=== PATIENT | female | born 1985 | race Caucasian/White ===

== ENCOUNTER 2016-12-25 12:04 | Emergency (ER) | payer MEDICAID, OTHER ==
[~2016-12-25] VITALS: Ht 160 cm; Wt 89.0 kg
[2016-12-25 12:09] VITALS: Ht 160 cm; Wt 89.0 kg
[2016-12-25] MEDS ORDERED: TYL500 PO (14:13)
[2016-12-25] MEDS ORDERED: SODI104S2 NS (14:14)
--- NOTE | 2016-12-25 14:45 | ERD ---
ER Documentation Chief Complaint Date/Time DATE: 12/25/16 TIME: 14:40 Chief Complaint 10 weeks send by pmd due htn, asymptomatic HPI This is a 31-year-old female presents to the ER for tachycardia. Upon questioning patient states she has high "tension." Patient went to her OB today and she was guest attendant referral, patient came to the ER since she was worried. Patient denies any chest pain or shortness of breath. She denies any palpitations at this time. Patient does not have any fevers or chills. She does have a runny nose, cough and sore throat which started 3 days ago. Patient denies any vaginal bleeding. She denies any pelvic pain. She denies any urinary frequency or dysuria. She denies any vaginal discharge. ROS 12 point review of systems was done, all negative except per HPI. Medications Home Meds Active Scripts Sodium Chloride ([place]) 104 Ml [place], 104 ML NS q2 for 3 Days, SPRAY Prov:ANTOINE,SHELIA C 12/25/16 Acetaminophen* (Tylenol*) 500 Mg Tab, 500 MG PO Q4H Y for MILD PAIN LEVEL 1-3 for 3 Days, TAB Prov:ANTOINE,SHELIA C 12/25/16 Allergies Allergies: Coded Allergies: No Known Allergy (Unverified , 12/25/16) PMhx/Soc Medical and Surgical Hx: pt denies Medical Hx, pt denies Surgical Hx History of Surgery: No Anesthesia Reaction: No Hx Neurological Disorder: No Hx Respiratory Disorders: No Hx Cardiac Disorders: No Hx Psychiatric Problems: No Hx Miscellaneous Medical Probl: No Hx Alcohol Use: No Hx Substance Use: No Hx Tobacco Use: No Smoking Status: Never smoker Physical Exam Vitals Vital Signs Date Time Temp Pulse Resp B/P Pulse Ox O2 Delivery O2 Flow Rate FiO2 12/25/16 12:09 98.1 99 20 132/80 99 Physical Exam GENERAL: The patient is well developed and appropriate for usual state of health , in no apparent distress. HEENT: Atraumatic. CHEST: Clear to auscultation bilaterally. There are no rales, wheezes or rhonchi. HEART: Regular rate and rhythm. No murmurs, clicks, rubs or gallops. ABDOMEN: Soft, nontender and nondistended. Good bowel sounds. No rebound or guarding. No gross peritonitis. No gross organomegaly or masses. No Banda sign or McBurney point tenderness. BACK: No midline or flank tenderness. NEURO: Alert and oriented. Procedures/MDM Blood Pressure Log from Clinic: 11/13/16- 138/84 11/27/16- 112/68 12/03/16-138/80 12/11/16- 119/71 12/25/16-129/93 This is a 31-year-old female presents to the ER for hypertension. I called patient's primary care doctor to clarify history as patient's blood pressure was normal in the ER and upon review of paperwork from PCP there was no evidence of previous high blood pressure. Patient is not tachycardic and is asymptomatic in the ER. I spoke to Elle, who informed me that patient was supposed to wait for a call from the clinic for guest attendant appointment. I discussed this with the patient. Patient will be treated symptomatically for her upper respiratory infection, at this time I do not believe patient has pneumonia or any other intrathoracic abnormality is her physical examination is benign. I also doubt help syndrome as patient is only in her first trimester with completely normal vital signs. I do not believe patient is having any abnormalities with the she does not have any vaginal bleeding pelvic pain or urinary frequency or dysuria. Patient my medical decision making with the patient she understands and agrees with plan. Departure Diagnosis: Primary Impression: Normal physical exam Condition: Stable Patient Instructions: Normal Exam, (Child) (Adult) Referrals: SUNNY MCGILL MD Additional Instructions: Call your primary care doctor TOMORROW for an appointment during the next 1-2 days.See the doctor sooner or return here if your condition worsens before your appointment time. SHELIA SCHULTZ December 25, 2016 14:45
== END 2016-12-25 14:54 | disposition home or self-care (01) ==
LOC: FTE 12:04
DX: Z34.00 Encounter for supervision of normal first pregnancy, unspecified trimester (principal)
CPT/HCPCS: 99283

== ENCOUNTER 2017-04-17 17:42 | Inpatient (IN) | payer OTHER ==
[~2017-04-17] VITALS: Ht 152.4 cm; Wt 113.6 kg
[~2017-04-17 17:42] MED LIST: SODI104S2 NS; TYL500 PO
[2017-04-17] MEDS ORDERED: PREN-93 PO (18:52)
[2017-04-17 18:53] VITALS: Ht 152.4 cm; Wt 113.6 kg
--- NOTE | 2017-04-17 19:03 | RADRPT ---
PROCEDURE: US biophysical profile. CLINICAL INDICATION: Decreased motion. TECHNIQUE: Multiple sonographic images of the uterus were obtained. The images were revi ewed on a PACS workstation. COMPARISON: No prior studies are available for comparison. FINDINGS: There is a single live intrauterine gestation. heart rate is 154 beats per minute. The position is cephalic. The placenta is anterior grade 1 with no abruption or previa. The AILYN is 12.4 cm. (Normal = 5-20 cm.) Breathing Movement: 2 Gross Body Movement: 2 Tone: 2 Qualitative Amniotic Fluid Volume: 2 TOTAL: 8 IMPRESSION: 1. The biophysical score is 8/8. RPTAT: QQ .Tristan Gamino MD, MD Date Time Electronically viewed and signed by .Tristan Gamino MD, on 04/17/2017 19:03 .R/
--- NOTE | 2017-04-17 21:04 | PN ---
Triage Information Date/Time 04/17/17 Reason for visit: DFM (and vaginal spotting without sexual intercourse) Weeks of Gestation 27weeks /Para with hx of PTB at 31w receiving 17hydrxy progesterone injection ? progesterone suppository? paient dosent know why she was sent to triage Objective bP 122/61 [id number] 98.3 Heart Rate: 130's Contractions: None Results/Medications Imaging Results BPP 8/8 CVL placenta ant, no abruptio or previa Disposition: Discharge Assessment/Plan IUP 27w with Hx of PTB at 31 wweeks DFM vaginal spotting PLAN 2weeks at ap[facility] or RTH PRN WITH ROUTINE LABOR INSTRUCTIONS MARICEL COLORADO MD Apr 17, 2017 21:03
--- NOTE | 2017-04-17 21:55 | RADRPT ---
PROCEDURE: CERVICAL LENGTH ULTRASOUND CLINICAL INDICATION: labor at 27 weeks gestational age. TECHNIQUE: Trans-vaginal imaging of the cervical canal was performed utilizing duran-scale imaging. Sagittal and transverse images were obtained. Trans-abdominal images were also obtained. The jese ges were reviewed on a PACS workstation. COMPARISON: None. FINDINGS: There is a single live intrauterine . heart rate is 157 beats per minute. Position is cephalic and placenta is anterior grade 1. There is no placenta previa. The cervix is closed with a length of 1.8 cm. IMPRESSION: 1. Cervical length is 1.8 cm. RPTAT: QQ .Tristan Gamino MD, MD Date Time Electronically viewed and signed by .Tristan Gamino MD, on 04/17/2017 21:55 .R/
[2017-04-17] MEDS ORDERED: PROGESTERONE 100 MG CAP PO SCH (22:24)
--- NOTE | 2017-04-17 23:00 | TRIAGE ---
OB Triage Datetime Report Generated by CPN: 04/17/2017 23:00 Datetime: 04/17/2017 19:00 Labor Evaluation Frequency: 0 Monitor Mode: External Duration (sec)2399: 0 Resting Tone [place]: Relaxed Heart Rate FHR Baseline Rate: 150 Monitor Mode: External US FHR Baseline Changes: No Baseline Change Variability: Moderate 6-25 bpm Accelerations: 15X15 Decelerations: None Category: Category I Datetime: 04/17/2017 18:30 Labor Evaluation Frequency: 0 Monitor Mode: External Duration (sec)2399: 0 Resting Tone [place]: Relaxed Heart Rate FHR Baseline Rate: 150 Monitor Mode: External US FHR Baseline Changes: No Baseline Change Variability: Moderate 6-25 bpm Accelerations: 15X15 Decelerations: None Category: Category I Datetime: 04/17/2017 18:00 Stage of : OB Triage Maternal Assessment Level of Consciousness: Fully Conscious DTR's/Clonus: DTRs 2+; No Clonus Headache: Denies Blurred Vision: No Respiratory Effort: Unlabored Breath Sounds, Left: Clear and Equal Breath Sounds, Right: Clear and Equal Nausea/Vomiting: Denies RUQ Epigastric Pain: Denies Facial Edema: None Labor Evaluation Frequency: 0 Monitor Mode: External Duration (sec)2399: 0 Resting Tone [place]: Relaxed Heart Rate FHR Baseline Rate: 150 Monitor Mode: External US FHR Baseline Changes: No Baseline Change Variability: Moderate 6-25 bpm Accelerations: 15X15 Decelerations: None Category: Category I Pain Assessment Pain Scale: 0 Pain Presence: None/Denies Pain Type: N/A Pain Goal: 0 Vaginal Exam Membrane Status: Intact Datetime: 04/17/2017 17:30 Arrived By: Ambulatory Arrived From: Office Chief Complaint: DFM Movement: Decreased Contractions: Denies/Absent Rupture of Membranes: Denies Vaginal Bleeding: Small Vaginal Discharge: Denies Recent Sexual Intercouse: Denies Abdominal Trauma: Not Applicable Patient Complaints: Other Additional Patient Complaints: HX OF PTD @ 31 WKS
[2017-04-18] MEDS ORDERED: MAGNESIUM SULFATE 4 GM/100 ML 100 ML IVPB ONE (00:30)
[2017-04-18] MEDS ORDERED: BETAMET NA PHOS/AC(6 MG/ML) 5ML INJ IM ONE (00:38)
[2017-04-18] MEDS: LACTATED RINGER'S 1,000 ML IV SCH ×2 (00:56→12:03)
[2017-04-18] MEDS ORDERED: PROGESTERONE 100 MG CAP ONE (01:01)
[2017-04-18] MEDS: MAGNESIUM SULFATE 20 GM/500 ML 500 ML IV SCH ×3 (01:29→18:12)
[2017-04-18] MEDS: ACETAMINOPHEN 325 MG TAB PO PRN ×3 (02:27→21:02)
--- NOTE | 2017-04-18 03:46 | HP ---
Date/Time of Note Date/Time of Note DATE: 04/18/17 TIME: 03:27 OB - History Hx of Present Free Text/Dictation 31 y.o at 27weeks was sent for DFM and vaginal spotting X3 while in [place] after wipe denies sexual activities Hx of PTB aat 31weeks in [facility] receiving progesterone supp 200mg hs after BPP done she was suppose to be discharged but since she had hx of PTB CVL was added which was 1.8 patient was admitted to antepartum for futher management and periconsult in am . Chief Complaint: DFM vaginal spotting Estimated Due Date: Jul 17, 2017 : 3 Para: 2 Spontaneous : 0 Therapeutic : 0 Care: Other Obstetrical Complications: None, Other (Hx of PTB, progesterone suppository) Medical Complications: None Past Family/Social History * Past Medical, Surgical, Family and Obstetric Histories reviewed from chart. Blood Type: Unknown Rubella: unknown RPR/VDRL: Unknown GBS Status: Unknown HBsAG: Unknown OB Admission Exam Physical Exam HEENT: WNL Heart: Rhythm Normal Lungs: Clear, Equal Abdomen: WNL Extremities: Normal Reflexes: Normal Cervical Dilatation: other Effacement: Other Membranes: Intact Amniotic Fluid: Unevaluable Heart Rate: 130's Accelerations: Accelerations Present Decelerations: No Decelerations Varibility: Moderate Contractions on Admission: None OB Assessment/Plan Reason for admission: other Other Assessment: IUP 27w with DFM and vaginaal spotting short cervix Hx of PTB at 31 weeks Other plan: admit and bedrest perinatalogy consult Her OB contacted got futher orders MARICEL COLORADO MD Apr 18, 2017 03:41
[2017-04-18] MEDS: FERROUS SULFATE (EC) 325 MG TAB PO SCH (09:21)
[2017-04-18] MEDS: SENNA TAB PO SCH (09:21)
[2017-04-18] MEDS: PRENATAL VITAMIN PO SCH (09:21)
[2017-04-18 12:40] LABS: BASOPHILS % 0.2 % (0.0-2.0); EOSINOPHILS % 0.1 % (0.0-7.0); HEMATOCRIT 37.2 % (37.0-47.0); HEMOGLOBIN 12.3 g/dl (12.0-16.0); LYMPHOCYTES # 1.2 10^3/ul (0.8-2.9); LYMPHOCYTES % 8.8 % (15.0-51.0); MEAN CORPUSCULAR HEMOGLOBIN 27.3 pg (29.0-33.0); MEAN CORPUSCULAR HGB CONC 33.1 g/dl (32.0-37.0); MEAN CORPUSCULAR VOLUME 82.7 fl (82.0-101.0); MEAN PLATELET VOLUME 9.6 fl (7.4-10.4); MONOCYTE # 0.3 10^3/ul (0.3-0.9); MONOCYTES % 2.1 % (0.0-11.0); NEUTROPHILS % 87.8 % (39.0-77.0); PLATELET COUNT 269 10^3/UL (140-415); RED CELL DISTRIBUTION WIDTH 14.2 % (11.5-14.5); WHITE BLOOD COUNT 13.1 10^3/ul (4.8-10.8)
[2017-04-18 13:03] LABS: ALBUMIN 3.8 g/dl (3.3-4.9); ALBUMIN/GLOBULIN RATIO 1.02; CALCIUM 7.9 mg/dl (8.4-10.2); CREATININE 0.44 mg/dl (0.44-1.00); POTASSIUM 3.9 mmol/L (3.5-5.1); TOTAL PROTEIN 7.5 g/dl (6.1-8.1)
--- NOTE | 2017-04-18 13:03 | RADRPT ---
PROCEDURE: XR Chest. CLINICAL INDICATION: Positive PPD. TECHNIQUE: Single AP portable chest. COMPARISON: None. Chest x-ray FINDINGS: The cardiomediastinal silhouette is within normal limits of size. Mild hypoventilatory changes resul ting in cardiovascular structures. Subtle asymmetric increase pulmonary vascular markings in the ri ght lower lobe. This likely represents vascular overlap. A lateral view or repeat study with impro jan inspiratory effort is recommended. The lungs are clear without pleural effusion or focal cons olidation. No pneumothorax. The osseous structures and soft tissues are unremarkable. IMPRESSION: 1. Increased pulmonary vascular markings in the medial aspect of the right lower lobe. This likely represents vascular overlap secondary to hypoventilatory changes and vascular crowding, however, giv en the history of positive PPD , a repeat study with improved inspiratory effort as well as lateral view is recommended . RPTAT:AAJJ Physician Raeann Date Time Electronically viewed and signed by Physician Raeann on 04/18/2017 13:03 SHEYLA/
[2017-04-18 13:13] LABS: INR 1.04; PROTIME 13.6 Sec (12.2-14.2); PT RATIO 1.1
[2017-04-18 13:14] LABS: PARTIAL THROMBOPLASTIN TIME 28.9 Sec (25.0-35.0)
[2017-04-18 14:01] LABS: ADD UMIC YES; UR ASCORBIC ACID 20 mg/dL (NEGATIVE); UR BACTERIA FEW /HPF (NONE SEEN); UR BILIRUBIN (Dip) NEGATIVE (NEGATIVE); UR BLOOD (Dip) NEGATIVE (NEGATIVE); UR CLARITY CLEAR (CLEAR); UR COLOR YELLOW (YELLOW); UR GLUCOSE (Dip) 1+ mg/dL (NEGATIVE); UR KETONES (Dip) TRACE mg/dL (NEGATIVE); UR LEUKOCYTE ESTERASE (Dip) TRACE Leu/ul (NEGATIVE); UR MUCUS FEW /HPF (NONE SEEN); UR NITRITE (Dip) NEGATIVE (NEGATIVE); UR RBC 2 /HPF (0-5); UR SPECIFIC GRAVITY (Dip) 1.016 (1.003-1.030); UR TOTAL PROTEIN (Dip) NEGATIVE (NEGATIVE); UR UROBILINOGEN (Dip) NEGATIVE (NEGATIVE)
[2017-04-18] MEDS: AL HYDROX/MG HYDROX/SIMETH 30 ML CUP PO PRN (14:14)
--- NOTE | 2017-04-18 20:58 | PN ---
Date/Time of Note Date/Time of Note DATE: 04/18/17 TIME: 20:56 OB Subjective Subjective Subjective Patient has no more complaint of vaginal bleeding or uterine Feels much better comparing to the day of admission OB Objective Objective Objective General physical exam is normal Vital signs are stable On electronic monitoring no uterine contractions seen She has received 1 dose of steroid She was placed on intravaginal progesterone suppository day prior to admission OB Assessment/Plan Reason for admission: labor Other Assessment: Short cervix 2728 weeks gestation Other plan: Continue magnesium sulfate for 24-48 hour Change to p.o. tocolytics afterwards Continue progesterone suppository Second dose of steroids is in order SUNNY MCGILL MD Apr 18, 2017 20:58
[2017-04-18] MEDS ORDERED: PROGESTERONE 100 MG CAP VAG SCH (21:00)
[2017-04-18] MEDS: PROGESTERONE 100 MG CAP VAG SCH (21:01)
[2017-04-19] MEDS: LACTATED RINGER'S 1,000 ML IV SCH ×2 (00:44→13:00)
[2017-04-19] MEDS ORDERED: BETAMET NA PHOS/AC(6 MG/ML) 5ML INJ IM ONE (00:45)
--- NOTE | 2017-04-19 00:58 | CONS ---
DATE OF ADMISSION: 04/17/2017 DATE OF CONSULTATION: 04/18/2017 ADDENDUM: To the already dictated consult. In addition to my previous recommendations, a chest x-ray was ordered as the patient was PPD positive in her record, and chest x-ray has not been obtained, so a chest x-ray was ordered and please follow up on the results. Dictated By: Lacie Toscano MD /aydee/monty /Document#: [id number]
--- NOTE | 2017-04-19 01:10 | CONS ---
DATE OF ADMISSION: 04/17/2017 DATE OF CONSULTATION: 04/18/2017 HISTORY OF PRESENT ILLNESS: Patient is a 31-year-old, G3, P 2, with prior delivery at 32 weeks in [facility]. She is currently 27 weeks and 1 day. She presented after noticing some blood after she used the bathroom. She denies contractions. PAST MEDICAL HISTORY: Not significant. REVIEW OF SYSTEMS: Negative except for as mentioned above. PHYSICAL EXAMINATION: VITAL SIGNS: Stable. Physical Examination deferred. heart tones reassuring for gestational age. Tocometer shows irritability. Urinalysis is not resulted yet. Her cervical length shows cervix to be 1.8 cm. IMPRESSION: 1. Intrauterine at 27 weeks and 1 day with labor. 2. Currently on magnesium sulfate, status post betamethasone x1. 3. History of a delivery at 32 weeks. 4. Urinalysis is not resulted yet. 5. Currently, no evidence of bleeding and she is stable. RECOMMENDATIONS: 1. Continue with the magnesium sulfate 24 hours after the 2nd dose of betamethasone; after that, if needed patient can be placed on Procardia 25 mg every 6 hours given her blood pressures are elevated enough to tolerate Procardia. 2. I told the patient I would like for her to stay at least of 1 week; however, she is seems to be very reluctant to do so. Therefore, I asked her until at least Friday and we will revaluate then. I did explain to her that with her history and the short cervix, there was a large risk of delivery, and if it happens at home, the outcome would be less proper than if she delivers at the hospital. 3. Urinalysis was again ordered, with urine culture. Please follow up on the results. 4. If the cervical length of Friday is above 2 cm, the patient can be discharged with modified bedrest and pelvic rest. If the cervix is below 2 cm I do recommend patient to stay. However, if she desires to leave, she can sign out against medical advice. Again, after the betamethasone is discontinued, Procardia can be considered if her blood pressures are appropriate enough not for the patient to experience hypotensive disorders. Dictated By: Lacie Toscano MD /aydee/monty /Document#: [id number]
[2017-04-19] MEDS: MAGNESIUM SULFATE 20 GM/500 ML 500 ML IV SCH (04:35)
[2017-04-19] MEDS: SENNA TAB PO SCH (10:25)
[2017-04-19] MEDS: FERROUS SULFATE (EC) 325 MG TAB PO SCH (10:25)
[2017-04-19] MEDS: PRENATAL VITAMIN PO SCH (10:25)
[2017-04-19] MEDS: NIFEdipine 10 MG CAP PO SCH ×2 (11:58→17:50)
[2017-04-19] MEDS: AL HYDROX/MG HYDROX/SIMETH 30 ML CUP PO PRN (13:03)
--- NOTE | 2017-04-19 15:15 | PN ---
Date/Time of Note Date/Time of Note DATE: 04/19/17 TIME: 15:12 OB Subjective Subjective Subjective No complaint of uterine contraction or vaginal bleed OB Objective Objective Objective Vital signs are stable General physical exam is normal On electronic monitoring no uterine contractions seen Heart tones appeared reactive Neonatology consultation recommends to keep patient in-house at least until 2016 OB Assessment/Plan Reason for admission: labor Other Assessment: Short cervix Other plan: We will continue to observe patient on Procardia 20 mg p.o. every 6 Continue to observe patient in hospital at least until April 21 Repeat cervical ultrasound on April 21, 2017 We will continue supportive care in between SUNNY MCGILL MD Apr 19, 2017 15:15
[2017-04-19] MEDS ORDERED: FERROUS SULFATE (EC) 325 MG TAB PO SCH (15:30)
[2017-04-19] MEDS ORDERED: PRENATAL VITAMIN PO SCH (15:30)
[2017-04-19] MEDS ORDERED: MAGNESIUM HYDROXIDE 30ML CUP PO PRN (15:30)
[2017-04-19] MEDS: ACETAMINOPHEN 325 MG TAB PO PRN (20:48)
[2017-04-19] MEDS ORDERED: PROGESTERONE 100 MG CAP VAG SCH (21:00)
[2017-04-19] MEDS: PROGESTERONE 100 MG CAP VAG SCH (21:20)
[2017-04-20] MEDS: NIFEdipine 10 MG CAP PO SCH ×4 (01:06→18:02)
[2017-04-20] MEDS: INDOMETHACIN 50 MG PO SCH ×3 (06:30→18:01)
[2017-04-20] MEDS: FERROUS SULFATE (EC) 325 MG TAB PO SCH (09:02)
[2017-04-20] MEDS: PRENATAL VITAMIN PO SCH (09:02)
[2017-04-20] MEDS: SENNA TAB PO PRN ×2 (09:03→21:05)
[2017-04-20] MEDS: AL HYDROX/MG HYDROX/SIMETH 30 ML CUP PO PRN ×2 (12:30→23:24)
--- NOTE | 2017-04-20 16:35 | PN ---
Date/Time of Note Date/Time of Note DATE: 04/20/17 TIME: 16:33 OB Subjective Subjective Subjective No complaint of uterine contractions and or vaginal bleeding Feeling much better OB Objective Objective Objective Vital signs are stable General physical exam is unchanged Electronic monitoring no uterine contractions seen Culture results are positive for Klebsiella pneumonia sensitive to Ancef OB Assessment/Plan Reason for admission: labor Other Assessment: Short cervix 28 and/or 27 weeks gestation Urinary tract infection Other plan: IV antibiotic therapy for urinary tract infection Patient is already on indomethacin for labor Will repeat cervical length ultrasound next day SUNNY MCGILL MD Apr 20, 2017 16:35
[2017-04-20] MEDS ORDERED: CEFAZOLIN 2 GM/50 ML (PMX) 50 ML IVPB SCH (18:00)
[2017-04-20] MEDS: CEFAZOLIN 2 GM/50 ML (PMX) 50 ML IVPB SCH ×2 (18:23→22:16)
[2017-04-20] MEDS: LACTATED RINGER'S 1,000 ML IV SCH (18:54)
[2017-04-20] MEDS: PROGESTERONE 100 MG CAP VAG SCH (21:05)
[2017-04-21] MEDS: INDOMETHACIN 50 MG PO SCH ×5 (00:02→23:50)
[2017-04-21] MEDS: NIFEdipine 10 MG CAP PO SCH ×5 (00:03→23:50)
[2017-04-21] MEDS: CEFAZOLIN 2 GM/50 ML (PMX) 50 ML IVPB SCH ×3 (06:01→22:14)
[2017-04-21] MEDS: ACETAMINOPHEN 325 MG TAB PO PRN (07:21)
[2017-04-21] MEDS: FERROUS SULFATE (EC) 325 MG TAB PO SCH (08:35)
[2017-04-21] MEDS: PRENATAL VITAMIN PO SCH (08:36)
[2017-04-21] MEDS: SENNA TAB PO PRN (08:36)
--- NOTE | 2017-04-21 09:09 | RADRPT ---
PROCEDURE: US OB. CLINICAL INDICATION: A short cervix. TECHNIQUE: Transabdominal and transvaginal views of the pelvis are available for review. COMPARISON: 04/17/2017. FINDINGS: There is a single living intrauterine gestation in breech position. There is active cardiac motion a t 142 beats per minute P There is an anterior placenta without evidence of previa. Cervical length is 1.8 cm. IMPRESSION: 1. Single living intrauterine gestation in breech position. 2. Cervix is closed and measures 1.8 cm. RPTAT: AACC Physician David Date Time Electronically viewed and signed by Physician David on 04/21/2017 09:09 /
[2017-04-21] MEDS: LACTATED RINGER'S 1,000 ML IV SCH ×2 (09:18→23:36)
--- NOTE | 2017-04-21 16:04 | PN ---
Date/Time of Note Date/Time of Note DATE: 04/21/17 TIME: 16:01 OB Subjective Subjective Subjective NO C/O uterine contractions OB Objective Objective Objective vital signs are stable general p/E is unchanged om EFM no U/C seen U/S results:Single living intrauterine gestation in breech position. Cervix is closed and measures 1.8 cm. OB Assessment/Plan Reason for admission: labor Other Assessment: short cervix 28 weeks gestation Other plan: continue to observe per perinatologist recommendation SUNNY MCGILL MD Apr 21, 2017 16:04
[2017-04-21] MEDS: PROGESTERONE 100 MG CAP VAG SCH (21:11)
[2017-04-22] MEDS: CEFAZOLIN 2 GM/50 ML (PMX) 50 ML IVPB SCH ×2 (05:50→14:16)
[2017-04-22] MEDS: NIFEdipine 10 MG CAP PO SCH ×3 (05:51→18:10)
[2017-04-22] MEDS: FERROUS SULFATE (EC) 325 MG TAB PO SCH (09:23)
[2017-04-22] MEDS: PRENATAL VITAMIN PO SCH (09:23)
[2017-04-22] MEDS: LACTATED RINGER'S 1,000 ML IV SCH (13:54)
[2017-04-22] MEDS: ACETAMINOPHEN 325 MG TAB PO PRN (14:17)
--- NOTE | 2017-04-22 16:21 | PN ---
Date/Time of Note Date/Time of Note DATE: 04/22/17 TIME: 16:20 OB Subjective Subjective Subjective No complaint of uterine contractions or vaginal bleeding OB Objective Objective Objective Vital signs are stable General physical exam is normal On electronic monitoring no uterine contractions seen OB Assessment/Plan Reason for admission: labor Other Assessment: Short cervix 28 + weeks gestation Other plan: We will continue to observe in hospital until 32/34 weeks of gestation per perinatologist recommendation SUNNY MCGILL MD Apr 22, 2017 16:21
[2017-04-22] MEDS: CEPHALEXIN 500 MG CAP PO SCH (18:10)
[2017-04-22] MEDS: PROGESTERONE 100 MG CAP VAG SCH (20:56)
[2017-04-22] MEDS: AL HYDROX/MG HYDROX/SIMETH 30 ML CUP PO PRN (21:15)
[2017-04-23] MEDS: CEPHALEXIN 500 MG CAP PO SCH ×5 (00:02→23:58)
[2017-04-23] MEDS: NIFEdipine 10 MG CAP PO SCH ×5 (00:02→23:57)
[2017-04-23] MEDS: PRENATAL VITAMIN PO SCH (10:03)
[2017-04-23] MEDS: FERROUS SULFATE (EC) 325 MG TAB PO SCH (10:03)
[2017-04-23] MEDS: ACETAMINOPHEN 325 MG TAB PO PRN ×2 (12:09→20:24)
[2017-04-23] MEDS: AL HYDROX/MG HYDROX/SIMETH 30 ML CUP PO PRN (18:27)
--- NOTE | 2017-04-23 18:40 | PN ---
Date/Time of Note Date/Time of Note DATE: 04/23/17 TIME: 18:39 OB Subjective Subjective Subjective No complaint of uterine contractions and or vaginal bleeding OB Objective Objective Objective Vital signs are stable General physical exam is normal OB Assessment/Plan Reason for admission: labor Other Assessment: Short cervix 2829 weeks gestation Other plan: Continue to observe in hospital perinatologist recommendation SUNNY MCGILL MD Apr 23, 2017 18:40
[2017-04-23] MEDS: PROGESTERONE 100 MG CAP VAG SCH (21:13)
[2017-04-24] MEDS: CEPHALEXIN 500 MG CAP PO SCH ×4 (05:58→23:58)
[2017-04-24] MEDS: NIFEdipine 10 MG CAP PO SCH ×4 (05:58→23:58)
[2017-04-24] MEDS: PRENATAL VITAMIN PO SCH (08:49)
[2017-04-24] MEDS: FERROUS SULFATE (EC) 325 MG TAB PO SCH (08:49)
--- NOTE | 2017-04-24 14:14 | PN ---
Date/Time of Note Date/Time of Note DATE: 04/24/17 TIME: 14:12 OB Subjective Subjective Subjective No complaint of uterine contractions or vaginal bleeding OB Objective Objective Objective Vital signs are stable Physical exam is normal On electronic monitoring no uterine contractions seen OB Assessment/Plan Reason for admission: labor Other Assessment: Short cervix [place] 29 weeks gestation Other plan: We will continue to observe until 32 weeks gestation SUNNY MCGILL MD Apr 24, 2017 14:13
[2017-04-24] MEDS: ACETAMINOPHEN 325 MG TAB PO PRN ×2 (14:15→17:55)
[2017-04-24] MEDS: PROGESTERONE 100 MG CAP VAG SCH (21:50)
[2017-04-25] MEDS: CEPHALEXIN 500 MG CAP PO SCH ×3 (06:04→18:09)
[2017-04-25] MEDS: NIFEdipine 10 MG CAP PO SCH ×3 (06:05→18:10)
[2017-04-25] MEDS: FERROUS SULFATE (EC) 325 MG TAB PO SCH (09:56)
[2017-04-25] MEDS: PRENATAL VITAMIN PO SCH (09:56)
[2017-04-25] MEDS: ACETAMINOPHEN 325 MG TAB PO PRN ×2 (14:38→18:14)
[2017-04-25] MEDS: AL HYDROX/MG HYDROX/SIMETH 30 ML CUP PO PRN (14:38)
--- NOTE | 2017-04-25 18:24 | PN ---
Date/Time of Note Date/Time of Note DATE: 04/25/17 TIME: 18:23 OB Subjective Subjective Subjective No complaint of uterine contractions OB Objective Objective Objective Vital signs are stable General physical exam is unchanged On electronic monitoring no uterine contractions seen OB Assessment/Plan Reason for admission: labor Other Assessment: Short cervix Other plan: Continue to observe on current medication which includes nifedipine and progesterone vaginal suppository SUNNY MCGILL MD Apr 25, 2017 18:24
[2017-04-25] MEDS: PROGESTERONE 100 MG CAP VAG SCH (21:19)
[2017-04-26] MEDS: CEPHALEXIN 500 MG CAP PO SCH ×4 (00:07→18:15)
[2017-04-26] MEDS: NIFEdipine 10 MG CAP PO SCH ×4 (00:08→18:15)
[2017-04-26] MEDS: PRENATAL VITAMIN PO SCH (09:35)
[2017-04-26] MEDS: FERROUS SULFATE (EC) 325 MG TAB PO SCH (09:35)
--- NOTE | 2017-04-26 14:11 | PN ---
Date/Time of Note Date/Time of Note DATE: 04/26/17 TIME: 14:09 OB Subjective Subjective Subjective Complaining of headache Complaint of uterine contractions of vaginal bleeding OB Objective Objective Objective Vital Signs are stable General physical exam is normal Chronic monitoring no uterine contractions seen Tones appeared reactive OB Assessment/Plan Reason for admission: labor Other Assessment: Short cervix 2829 weeks gestation Other plan: Continue to observe at least until 32 weeks per perinatologist SUNNY MCGILL MD Apr 26, 2017 14:11
[2017-04-26] MEDS: ACETAMINOPHEN 325 MG TAB PO PRN (18:22)
[2017-04-26] MEDS: PROGESTERONE 100 MG CAP VAG SCH (21:23)
[2017-04-27] MEDS: CEPHALEXIN 500 MG CAP PO SCH ×5 (00:14→23:53)
[2017-04-27] MEDS: NIFEdipine 10 MG CAP PO SCH ×5 (00:15→23:53)
[2017-04-27] MEDS: FERROUS SULFATE (EC) 325 MG TAB PO SCH (09:24)
[2017-04-27] MEDS: PRENATAL VITAMIN PO SCH (09:24)
[2017-04-27] MEDS: ACETAMINOPHEN 325 MG TAB PO PRN (12:01)
--- NOTE | 2017-04-27 12:18 | PN ---
Date/Time of Note Date/Time of Note DATE: 04/27/17 TIME: 12:17 OB Subjective Subjective Subjective No complaint of vaginal bleeding or uterine contractions OB Objective Objective Objective Vital signs are stable General physical exam is unchanged On electronic monitoring no uterine contractions seen OB Assessment/Plan Reason for admission: labor Other Assessment: Short cervix 28/29 weeks gestation Other plan: Continue to observe on current medications SUNNY MCGILL MD Apr 27, 2017 12:18
[2017-04-27] MEDS: PROGESTERONE 100 MG CAP VAG SCH (21:00)
[2017-04-28] MEDS: NIFEdipine 10 MG CAP PO SCH ×3 (06:51→18:14)
[2017-04-28] MEDS: CEPHALEXIN 500 MG CAP PO SCH ×3 (06:52→18:14)
[2017-04-28] MEDS: FERROUS SULFATE (EC) 325 MG TAB PO SCH (09:22)
[2017-04-28] MEDS: PRENATAL VITAMIN PO SCH (09:22)
[2017-04-28] MEDS: AL HYDROX/MG HYDROX/SIMETH 30 ML CUP PO PRN (12:10)
[2017-04-28] MEDS: ACETAMINOPHEN 325 MG TAB PO PRN ×2 (12:10→18:15)
--- NOTE | 2017-04-28 19:59 | PN ---
Date/Time of Note Date/Time of Note DATE: 04/28/17 TIME: 19:58 OB Subjective Subjective Subjective No complaint of uterine contractions or vaginal bleeding OB Objective Objective Objective Vital signs are stable General physical exam is unchanged Electronic monitoring no uterine contractions seen OB Assessment/Plan Reason for admission: labor Other Assessment: Short cervix 28+ weeks gestation Other plan: Continue to observe in hospital until 32 weeks at least SUNNY MCGILL MD Apr 28, 2017 19:59
[2017-04-28] MEDS: PROGESTERONE 100 MG CAP VAG SCH (21:37)
[2017-04-28] MEDS: SENNA TAB PO PRN (21:37)
[2017-04-29] MEDS: NIFEdipine 10 MG CAP PO SCH ×4 (00:08→18:48)
[2017-04-29] MEDS: CEPHALEXIN 500 MG CAP PO SCH ×5 (00:08→18:56)
[2017-04-29] MEDS: FERROUS SULFATE (EC) 325 MG TAB PO SCH (09:28)
[2017-04-29] MEDS: PRENATAL VITAMIN PO SCH (09:28)
[2017-04-29] MEDS: ACETAMINOPHEN 325 MG TAB PO PRN (12:12)
--- NOTE | 2017-04-29 20:35 | PN ---
Date/Time of Note Date/Time of Note DATE: 04/29/17 TIME: 20:34 OB Subjective Subjective Subjective No complaint of uterine contractions or vaginal bleeding OB Objective Objective Objective Vital signs are stable General physical exam is normal On electronic monitoring no uterine contractions seen OB Assessment/Plan Reason for admission: labor Other Assessment: Short cervix 28/29 weeks gestation Other plan: We will continue to observe in hospital until 32 weeks of gestation SUNNY MCGILL MD Apr 29, 2017 20:35
[2017-04-29] MEDS: PROGESTERONE 100 MG CAP VAG SCH (21:17)
[2017-04-30] MEDS: NIFEdipine 10 MG CAP PO SCH ×4 (00:21→17:31)
[2017-04-30] MEDS: ACETAMINOPHEN 325 MG TAB PO PRN (07:39)
[2017-04-30] MEDS: PRENATAL VITAMIN PO SCH (09:10)
[2017-04-30] MEDS: FERROUS SULFATE (EC) 325 MG TAB PO SCH (09:10)
--- NOTE | 2017-04-30 09:30 | RADRPT ---
PROCEDURE: Limited OB ultrasound CLINICAL INDICATION: Cervical length. TECHNIQUE: Sonographic evaluation to assess the cervical length was performed. COMPARISON: 04/21/2017. FINDINGS: Single live intrauterine is identified. heart rate is 166 beats per minute. Placenta is anterior. Presentation is breech. Cervical length measures approximately 1.8 cm. IMPRESSION: Shortened cervical length, measuring 1.8 cm but unchanged in comparison to 04/21/2017. Breech presentation. RPTAT: EE .David Sweeney MD, MD Date Time Electronically viewed and signed by .David Sweeney MD, MD on 04/30/2017 09:36 .C/
--- NOTE | 2017-04-30 19:48 | PN ---
Date/Time of Note Date/Time of Note DATE: 04/30/17 TIME: 19:47 OB Subjective Subjective Subjective 31-year-old female with short cervix and contractions Currently has no complaint of uterine contractions or vaginal bleed OB Objective Objective Objective Vital signs are stable Physical exam is normal On electronic monitoring no uterine contractions seen OB Assessment/Plan Reason for admission: labor Other Assessment: Short cervix 28-29 weeks gestation Other plan: Continue to observe until 32 weeks per perinatology recommendation SUNNY MCGILL MD Apr 30, 2017 19:48
[2017-04-30] MEDS: PROGESTERONE 100 MG CAP VAG SCH (21:29)
[2017-04-30] MEDS: AL HYDROX/MG HYDROX/SIMETH 30 ML CUP PO PRN (22:41)
[2017-05-01] MEDS: NIFEdipine 10 MG CAP PO SCH ×4 (00:19→18:27)
[2017-05-01] MEDS: PRENATAL VITAMIN PO SCH (12:28)
[2017-05-01] MEDS: FERROUS SULFATE (EC) 325 MG TAB PO SCH (12:29)
[2017-05-01] MEDS: AL HYDROX/MG HYDROX/SIMETH 30 ML CUP PO PRN (16:14)
--- NOTE | 2017-05-01 17:23 | PN ---
Date/Time of Note Date/Time of Note DATE: 05/01/17 TIME: 17:21 OB Subjective Subjective Subjective No complaint of uterine contractions of vaginal bleeding OB Objective Objective Objective Vital signs stable General physical exam is unchanged On electronic monitoring no uterine contractions seen Cervical length remain unchanged OB Assessment/Plan Reason for admission: labor Other Assessment: Short cervix 2829 weeks gestation Other plan: Continue to observe until 32 weeks of gestation SUNNY MCGILL MD May 01, 2017 17:23
[2017-05-01] MEDS: ACETAMINOPHEN 325 MG TAB PO PRN (21:25)
[2017-05-01] MEDS: PROGESTERONE 100 MG CAP VAG SCH (21:25)
[2017-05-02] MEDS: NIFEdipine 10 MG CAP PO SCH ×4 (00:03→18:04)
[2017-05-02] MEDS: PRENATAL VITAMIN PO SCH (11:00)
[2017-05-02] MEDS: FERROUS SULFATE (EC) 325 MG TAB PO SCH (11:00)
[2017-05-02] MEDS: ACETAMINOPHEN 325 MG TAB PO PRN (14:17)
--- NOTE | 2017-05-02 17:28 | PN ---
Date/Time of Note Date/Time of Note DATE: 05/02/17 TIME: 17:27 OB Subjective Subjective Subjective No complaint of vaginal bleeding or uterine contractions OB Objective Objective Objective Vital signs are stable General physical exam is normal On electronic monitoring no uterine contractions seen OB Assessment/Plan Reason for admission: labor Other Assessment: Short cervix 29 weeks gestation Other plan: Continue to observe at least until 32 weeks SUNNY MCGILL MD May 02, 2017 17:28
[2017-05-02] MEDS: PROGESTERONE 100 MG CAP VAG SCH (21:15)
[2017-05-03] MEDS: NIFEdipine 10 MG CAP PO SCH ×5 (00:16→23:48)
[2017-05-03] MEDS: PRENATAL VITAMIN PO SCH (08:58)
[2017-05-03] MEDS: FERROUS SULFATE (EC) 325 MG TAB PO SCH (08:58)
[2017-05-03] MEDS: ACETAMINOPHEN 325 MG TAB PO PRN (12:16)
[2017-05-03] MEDS: AL HYDROX/MG HYDROX/SIMETH 30 ML CUP PO PRN (12:16)
--- NOTE | 2017-05-03 18:11 | PN ---
Date/Time of Note Date/Time of Note DATE: 05/03/17 TIME: 18:08 OB Subjective Subjective Subjective Complaint of uterine contractions OB Objective Objective Objective Vital signs stable Physical exam is unchanged On electronic monitoring no uterine contractions seen OB Assessment/Plan Reason for admission: labor Other Assessment: Short cervix which is unchanged since admission 29/30 weeks gestation Other plan: We will continue to observe patient at this time until 32 weeks SUNNY MCGILL MD May 03, 2017 18:11
[2017-05-03] MEDS: PROGESTERONE 100 MG CAP VAG SCH (21:47)
[2017-05-04] MEDS: NIFEdipine 10 MG CAP PO SCH ×3 (06:03→18:23)
[2017-05-04] MEDS: FERROUS SULFATE (EC) 325 MG TAB PO SCH (09:51)
[2017-05-04] MEDS: PRENATAL VITAMIN PO SCH (09:51)
--- NOTE | 2017-05-04 12:32 | PN ---
Date/Time of Note Date/Time of Note DATE: 05/04/17 TIME: 12:31 OB Subjective Subjective Subjective No complaint of labor pains OB Objective Objective Objective Vital signs stable General physical exam is normal On electronic monitoring no uterine contractions seen OB Assessment/Plan Reason for admission: labor Other Assessment: Short cervix 2930 weeks gestation Other plan: We will continue to observe patient until 32 weeks of gestation SUNNY MCGILL MD May 04, 2017 12:32
[2017-05-04] MEDS: ACETAMINOPHEN 325 MG TAB PO PRN (14:46)
[2017-05-04] MEDS: PROGESTERONE 100 MG CAP VAG SCH (21:15)
[2017-05-05] MEDS: NIFEdipine 10 MG CAP PO SCH ×4 (00:01→18:16)
[2017-05-05] MEDS: FERROUS SULFATE (EC) 325 MG TAB PO SCH (09:23)
[2017-05-05] MEDS: PRENATAL VITAMIN PO SCH (09:23)
[2017-05-05] MEDS: ACETAMINOPHEN 325 MG TAB PO PRN (15:18)
--- NOTE | 2017-05-05 16:14 | PN ---
Date/Time of Note Date/Time of Note DATE: 05/05/17 TIME: 16:13 OB Subjective Subjective Subjective No complaint of uterine contractions or vaginal bleeding OB Objective Objective Objective Vital signs stable General physical exam is normal Electronic monitoring no uterine contractions seen OB Assessment/Plan Reason for admission: labor Other Assessment: Short cervix 29+ weeks gestation Other plan: Continue to observe at least until 32 weeks SUNNY MCGILL MD May 05, 2017 16:14
[2017-05-05] MEDS: PROGESTERONE 100 MG CAP VAG SCH (23:00)
[2017-05-06] MEDS: NIFEdipine 10 MG CAP PO SCH ×5 (00:02→23:54)
[2017-05-06] MEDS: PRENATAL VITAMIN PO SCH (10:03)
[2017-05-06] MEDS: FERROUS SULFATE (EC) 325 MG TAB PO SCH (10:03)
--- NOTE | 2017-05-06 10:26 | PN ---
Date/Time of Note Date/Time of Note DATE: 05/06/17 TIME: 10:21 OB Subjective Subjective Subjective no C/O U/C and or vaginal bleeding OB Objective Objective Objective vss P/E unchanged on EFM no UC seen OB Assessment/Plan Reason for admission: labor Other Assessment: Short dercix Other plan: continuie to observe SUNNY MCGILL MD May 06, 2017 10:26
[2017-05-06] MEDS: ACETAMINOPHEN 325 MG TAB PO PRN (11:31)
[2017-05-06] MEDS: PROGESTERONE 100 MG CAP VAG SCH (21:38)
[2017-05-07] MEDS: NIFEdipine 10 MG CAP PO SCH ×4 (06:09→23:46)
[2017-05-07] MEDS: FERROUS SULFATE (EC) 325 MG TAB PO SCH (10:44)
[2017-05-07] MEDS: PRENATAL VITAMIN PO SCH (10:44)
[2017-05-07] MEDS: ACETAMINOPHEN 325 MG TAB PO PRN ×2 (11:55→18:42)
[2017-05-07] MEDS: AL HYDROX/MG HYDROX/SIMETH 30 ML CUP PO PRN (14:05)
--- NOTE | 2017-05-07 18:21 | PN ---
Date/Time of Note Date/Time of Note DATE: 05/07/17 TIME: 18:20 OB Subjective Subjective Subjective No complaint of uterine contractions or vaginal bleeding OB Objective Objective Objective Vital signs remained stable Sickle exam is totally normal Electronic monitoring no uterine contractions seen OB Assessment/Plan Reason for admission: labor Other Assessment: Short cervix 29+ weeks gestation Other plan: We will continue to observe until 32 weeks SUNNY MCGILL MD May 07, 2017 18:21
[2017-05-07] MEDS: PROGESTERONE 100 MG CAP VAG SCH (21:22)
[2017-05-08] MEDS: NIFEdipine 10 MG CAP PO SCH ×3 (06:04→17:44)
[2017-05-08] MEDS: PRENATAL VITAMIN PO SCH (10:41)
[2017-05-08] MEDS: FERROUS SULFATE (EC) 325 MG TAB PO SCH (10:41)
[2017-05-08] MEDS: ACETAMINOPHEN 325 MG TAB PO PRN (12:09)
[2017-05-08] MEDS: PROGESTERONE 100 MG CAP VAG SCH (21:14)
[2017-05-09] MEDS: NIFEdipine 10 MG CAP PO SCH ×5 (00:12→23:49)
[2017-05-09] MEDS: PRENATAL VITAMIN PO SCH (08:53)
[2017-05-09] MEDS: FERROUS SULFATE (EC) 325 MG TAB PO SCH (08:53)
[2017-05-09] MEDS: PROGESTERONE 100 MG CAP VAG SCH (21:26)
[2017-05-10] MEDS: NIFEdipine 10 MG CAP PO SCH ×3 (05:58→17:32)
[2017-05-10] MEDS: PRENATAL VITAMIN PO SCH (09:02)
[2017-05-10] MEDS: FERROUS SULFATE (EC) 325 MG TAB PO SCH (09:02)
--- NOTE | 2017-05-10 20:44 | QN ---
Documentation Comment Progress Note Laborist HD# 23 Short cervix with a h/o PTL/PTD at 31 weeks. Pt doing well and is in good spirits. Denies any contractions, leaking or bleeding. Takes a shower briefly q AM. NST q shift. Baseline 130-140 bpm with accels to 160 bpm. No decels. No UC's. CX last looked ay 04/30 was 1.8 cm. No change from admit. Steroids 04/18 and 04/19. On Procardia 20 mg q 6 hours. On Progesterone 200 mg vaginal suppository q HS. Pt states her last baby was born at 31 weeks in [facility] and stayed in the hospital x 2 weeks and then went home?! P: Continue care. D/C per Dr Whitman and perinatology at either 32 or 34 weeks. BEBA TILLMAN MD May 10, 2017 20:44
[2017-05-10] MEDS: PROGESTERONE 100 MG CAP VAG SCH (21:35)
[2017-05-11] MEDS: NIFEdipine 10 MG CAP PO SCH ×5 (00:18→23:47)
[2017-05-11] MEDS: PRENATAL VITAMIN PO SCH (08:48)
[2017-05-11] MEDS: FERROUS SULFATE (EC) 325 MG TAB PO SCH (08:48)
[2017-05-11] MEDS: ACETAMINOPHEN 325 MG TAB PO PRN ×2 (09:36→23:50)
[2017-05-11] MEDS: SENNA TAB PO PRN (09:37)
[2017-05-11] MEDS: PROGESTERONE 100 MG CAP VAG SCH (20:41)
[2017-05-11] MEDS: AL HYDROX/MG HYDROX/SIMETH 30 ML CUP PO PRN (20:41)
[2017-05-12] MEDS: NIFEdipine 10 MG CAP PO SCH ×4 (06:02→23:43)
[2017-05-12] MEDS: FERROUS SULFATE (EC) 325 MG TAB PO SCH (10:08)
[2017-05-12] MEDS: PRENATAL VITAMIN PO SCH (10:08)
[2017-05-12] MEDS: ACETAMINOPHEN 325 MG TAB PO PRN ×2 (14:12→23:43)
--- NOTE | 2017-05-12 18:14 | QN ---
Documentation Comment iup vss exan wnl per nursing a/p iup short cervix continue care KADI JAEGER MD May 12, 2017 18:14
[2017-05-12] MEDS: PROGESTERONE 100 MG CAP VAG SCH (21:22)
[2017-05-12] MEDS: AL HYDROX/MG HYDROX/SIMETH 30 ML CUP PO PRN (22:18)
[2017-05-13] MEDS: NIFEdipine 10 MG CAP PO SCH ×3 (06:20→18:10)
[2017-05-13] MEDS: ACETAMINOPHEN 325 MG TAB PO PRN ×3 (07:52→18:10)
[2017-05-13] MEDS: FERROUS SULFATE (EC) 325 MG TAB PO SCH (10:39)
[2017-05-13] MEDS: PRENATAL VITAMIN PO SCH (10:39)
[2017-05-13] MEDS: SENNA TAB PO PRN (10:43)
[2017-05-13] MEDS: PROGESTERONE 100 MG CAP VAG SCH (21:32)
[2017-05-14] MEDS: NIFEdipine 10 MG CAP PO SCH ×4 (00:04→17:41)
[2017-05-14] MEDS: FERROUS SULFATE (EC) 325 MG TAB PO SCH (08:53)
[2017-05-14] MEDS: PRENATAL VITAMIN PO SCH (08:53)
[2017-05-14] MEDS: ACETAMINOPHEN 325 MG TAB PO PRN (14:18)
--- NOTE | 2017-05-14 20:07 | PN ---
Date/Time of Note Date/Time of Note DATE: 05/14/17 TIME: 20:07 OB Subjective Subjective Subjective No complaint of uterine contractions OB Objective Objective Objective Vital signs stable Physical exam is unchanged On electronic monitoring no uterine contractions seen OB Assessment/Plan Reason for admission: labor Other Assessment: Short cervix Other plan: DC home at 32 weeks SUNNY MCGILL MD May 14, 2017 20:07
[2017-05-14] MEDS: PROGESTERONE 100 MG CAP VAG SCH (21:12)
[2017-05-15] MEDS: NIFEdipine 10 MG CAP PO SCH ×4 (00:09→17:46)
[2017-05-15] MEDS: PRENATAL VITAMIN PO SCH (10:52)
[2017-05-15] MEDS: FERROUS SULFATE (EC) 325 MG TAB PO SCH (10:52)
[2017-05-15] MEDS: ACETAMINOPHEN 325 MG TAB PO PRN ×2 (10:52→17:46)
[2017-05-15] MEDS: AL HYDROX/MG HYDROX/SIMETH 30 ML CUP PO PRN (17:11)
--- NOTE | 2017-05-15 17:41 | PN ---
Date/Time of Note Date/Time of Note DATE: 05/15/17 TIME: 17:40 OB Subjective Subjective Subjective No complaint of uterine contractions or vaginal bleeding OB Objective Objective Objective Vital signs are stable Physical exam is normal On electronic monitoring no uterine contractions seen OB Assessment/Plan Reason for admission: labor Other Assessment: Short cervix 30+ weeks gestation Other plan: We will consider reducing patient home at 32 weeks per perinatologist recommendation SUNNY MCGILL MD May 15, 2017 17:41
[2017-05-15] MEDS: PROGESTERONE 100 MG CAP VAG SCH (21:48)
[2017-05-16] MEDS: NIFEdipine 10 MG CAP PO SCH ×5 (00:12→17:51)
[2017-05-16] MEDS: FERROUS SULFATE (EC) 325 MG TAB PO SCH (10:17)
[2017-05-16] MEDS: PRENATAL VITAMIN PO SCH (10:17)
[2017-05-16] MEDS: ONDANSETRON 4 MG INJ IV PRN (11:30)
[2017-05-16] MEDS: LACTATED RINGER'S 1,000 ML IV SCH ×2 (11:30→21:24)
[2017-05-16 13:19] LABS: ALBUMIN 3.9 g/dl (3.3-4.9); ALBUMIN/GLOBULIN RATIO 1.02; BILIRUBIN,INDIRECT 0.1 mg/dl (0-1.1); BILIRUBIN,TOTAL 0.1 mg/dl (0.2-1.3); CALCIUM 9.9 mg/dl (8.4-10.2); CREATININE 0.46 mg/dl (0.44-1.00); TOTAL PROTEIN 7.7 g/dl (6.1-8.1)
[2017-05-16] MEDS: ACETAMINOPHEN 325 MG TAB PO PRN (14:14)
--- NOTE | 2017-05-16 16:59 | PN ---
Date/Time of Note Date/Time of Note DATE: 05/16/17 TIME: 16:58 OB Subjective Subjective Subjective Was complaining of nausea vomiting Resolved after receiving Zofran OB Objective Objective Objective Vital signs are stable Patient is not tachycardic neither is hypotensive General physical exam is normal On electronic monitoring no uterine contractions seen OB Assessment/Plan Reason for admission: labor Other Assessment: Short cervix labor Nausea vomiting and abdominal pain mainly attributed to eating outside food Other plan: 10 year to observe SUNNY MCGILL MD May 16, 2017 16:59
[2017-05-16] MEDS: PROGESTERONE 100 MG CAP VAG SCH (21:24)
[2017-05-17] MEDS: LACTATED RINGER'S 1,000 ML IV SCH ×2 (05:15→18:01)
[2017-05-17] MEDS: NIFEdipine 10 MG CAP PO SCH ×4 (06:09→18:01)
[2017-05-17] MEDS: ONDANSETRON 4 MG INJ IV PRN (09:53)
[2017-05-17] MEDS: FERROUS SULFATE (EC) 325 MG TAB PO SCH (10:00)
[2017-05-17] MEDS: PRENATAL VITAMIN PO SCH (12:19)
[2017-05-17] MEDS: ACETAMINOPHEN 325 MG TAB PO PRN (12:19)
[2017-05-17 17:06] VITALS: BP 130/66
[2017-05-17] MEDS: PROGESTERONE 100 MG CAP VAG SCH (20:59)
[2017-05-18] MEDS: NIFEdipine 10 MG CAP PO SCH ×5 (00:03→23:51)
[2017-05-18] MEDS: ACETAMINOPHEN 325 MG TAB PO PRN ×2 (00:05→18:27)
[2017-05-18] MEDS: LACTATED RINGER'S 1,000 ML IV SCH ×2 (02:40→03:30)
[2017-05-18] MEDS: FERROUS SULFATE (EC) 325 MG TAB PO SCH (11:32)
[2017-05-18] MEDS: ONDANSETRON 4 MG INJ IV PRN (11:33)
[2017-05-18] MEDS: PRENATAL VITAMIN PO SCH (11:33)
[2017-05-18] MEDS: SENNA TAB PO PRN (12:58)
--- NOTE | 2017-05-18 14:54 | PN ---
Date/Time of Note Date/Time of Note DATE: 05/18/17 TIME: 14:49 OB Subjective Subjective Subjective No major complaints OB Objective Objective Objective VSS P/E : normal on EFM no UC seen OB Assessment/Plan Reason for admission: labor Other Assessment: short cervox 31 weeks gestation Other plan: continue to observe SUNNY CMGILL MD May 18, 2017 14:54
--- NOTE | 2017-05-18 14:56 | PN ---
Date/Time of Note Date/Time of Note DATE: 05/18/17 TIME: 14:55 OB Subjective Subjective Subjective NOmnajor complaints OB Objective Objective Objective vss P/E: normal on efm no uterine contractions seen OB Assessment/Plan Reason for admission: labor Other Assessment: short cervix Other plan: D/C home at 32 weeks SUNNY MCGILL MD May 18, 2017 14:56
[2017-05-18] MEDS: PROGESTERONE 100 MG CAP VAG SCH (21:15)
[2017-05-19] MEDS: NIFEdipine 10 MG CAP PO SCH ×4 (06:01→23:56)
[2017-05-19] MEDS: PRENATAL VITAMIN PO SCH (09:10)
[2017-05-19] MEDS: FERROUS SULFATE (EC) 325 MG TAB PO SCH (09:11)
[2017-05-19] MEDS: ACETAMINOPHEN 325 MG TAB PO PRN ×2 (13:53→18:02)
[2017-05-19] MEDS: SENNA TAB PO PRN (14:58)
--- NOTE | 2017-05-19 16:30 | PN ---
Date/Time of Note Date/Time of Note DATE: 05/19/17 TIME: 16:28 OB Subjective Subjective Subjective No complaint of uterine contractions or vaginal bleeding OB Objective Objective Objective Vital signs are stable General physical exam is unchanged On electronic monitoring no uterine contractions seen OB Assessment/Plan Reason for admission: labor Other Assessment: Short cervix 30+ weeks gestation Other plan: Continue to observe on Procardia Prometrium SUNNY MCGILL MD May 19, 2017 16:30
[2017-05-19] MEDS: PROGESTERONE 100 MG CAP VAG SCH (21:14)
[2017-05-20] MEDS: NIFEdipine 10 MG CAP PO SCH ×3 (05:36→18:03)
[2017-05-20] MEDS: PRENATAL VITAMIN PO SCH (10:36)
[2017-05-20] MEDS: FERROUS SULFATE (EC) 325 MG TAB PO SCH (10:44)
[2017-05-20] MEDS: ACETAMINOPHEN 325 MG TAB PO PRN (14:18)
--- NOTE | 2017-05-20 17:41 | PN ---
Date/Time of Note Date/Time of Note DATE: 05/20/17 TIME: 17:39 OB Subjective Subjective Subjective No complaint of uterine contractions No complaint of dizziness No more complaint of nausea vomiting OB Objective Objective Objective Vital signs are stable Physical exam is unchanged Electronic monitoring no uterine contractions seen OB Assessment/Plan Reason for admission: labor Other Assessment: Short cervix A 1+ weeks gestation Other plan: Continue to observe patient until 32 weeks SUNNY MCGILL MD May 20, 2017 17:41
[2017-05-20] MEDS: PROGESTERONE 100 MG CAP VAG SCH (21:31)
[2017-05-21] MEDS: NIFEdipine 10 MG CAP PO SCH ×4 (00:21→18:06)
[2017-05-21] MEDS: PRENATAL VITAMIN PO SCH (09:17)
[2017-05-21] MEDS: FERROUS SULFATE (EC) 325 MG TAB PO SCH (09:17)
--- NOTE | 2017-05-21 14:25 | PN ---
Date/Time of Note Date/Time of Note DATE: 05/21/17 TIME: 14:24 OB Subjective Subjective Subjective No more complaint of labor pain no uterine contractions OB Objective Objective Objective Vital signs stable General physical exam is unchanged On EFM no uterine contractions seen OB Assessment/Plan Reason for admission: labor Other Assessment: Short cervix 81 weeks plus gestation Other plan: Continue to observe until 32 weeks Obtain ultrasound for estimation of weight SUNNY MCGILL MD May 21, 2017 14:25
--- NOTE | 2017-05-21 15:25 | RADRPT ---
PROCEDURE: US OB. CLINICAL INDICATION: Size and dates , short cervix TECHNIQUE: Multiple sonographic images of the pelvis and gravid uterus were obtained. The images were reviewed on a PACS workstation. COMPARISON: US 04/30/2017 FINDINGS: There is a single viable intrauterine gestation. Cardiac activity is present with 171 beats per min [place]. There is a vertex presentation. The placenta is anterior. There is no evidence for an abruption or placenta previa. Measurements were made in order to determine age. The results are as follows: BPD =8.4 cm HC =29.5 cm AC =30.2 cm FL =6.4 cm Estimated gestational age of approximately 33 weeks and 3 days based on ultrasound measurements. Clinical age: 31 weeks and 6 days. The estimated date of delivery is 07/06/17, based on ultrasound measurements. The EFW = 2250 g, 90.9%, based on LMP age. RPTAT: AA IMPRESSION: Single viable intrauterine gestation of approximately 33 weeks and 3 days based on ultrasound measu rements. .Ian Toro MD, MD Date Time Electronically viewed and signed by .Ian Toro MD, on 05/21/2017 15:25 .S/
[2017-05-21] MEDS: ACETAMINOPHEN 325 MG TAB PO PRN (15:50)
[2017-05-21] MEDS: PROGESTERONE 100 MG CAP VAG SCH (21:47)
[2017-05-22] MEDS: NIFEdipine 10 MG CAP PO SCH ×4 (00:23→18:01)
[2017-05-22] MEDS: FERROUS SULFATE (EC) 325 MG TAB PO SCH (12:03)
[2017-05-22] MEDS: PRENATAL VITAMIN PO SCH (12:03)
--- NOTE | 2017-05-22 18:28 | PN ---
Date/Time of Note Date/Time of Note DATE: 05/22/17 TIME: 18:26 OB Subjective Subjective Subjective No complaint of uterine contractions or vaginal bleed OB Objective Objective Objective Vital signs stable General physical exam is unchanged On electronic monitoring no uterine contractions seen Estimation of weight today was around 2200 g plus minus Breech presentation was turned to vertex OB Assessment/Plan Reason for admission: labor (Short cervix) Other Assessment: Short cervix 31+ weeks gestation Other plan: We will DC home at 32 weeks SUNNY MCGILL MD May 22, 2017 18:28
[2017-05-22] MEDS: PROGESTERONE 100 MG CAP VAG SCH (21:36)
[2017-05-22] MEDS: AL HYDROX/MG HYDROX/SIMETH 30 ML CUP PO PRN (21:43)
[2017-05-23] MEDS: NIFEdipine 10 MG CAP PO SCH ×4 (00:08→18:06)
[2017-05-23] MEDS: PRENATAL VITAMIN PO SCH (10:08)
[2017-05-23] MEDS: FERROUS SULFATE (EC) 325 MG TAB PO SCH (10:08)
--- NOTE | 2017-05-23 14:24 | DS ---
Date/Time of Note Date/Time of Note F/U as out patient DATE: 05/23/17 TIME: 14:22 Obstetrical Discharge Record Final Diagnosis Final Diagnosis: not delivered Other Final Diagnosis labor and short cervix Complications Labor (and short cervix) Tocolytics: Magnesium Sulfate, Other (Nifedipine ) Condition on Discharge Physical Assessment Last Vitals: see nurses notes Voiding: Yes Bowel Movement: Yes Breast: Soft, non-tender, Filling Fundus: Other ( ) Abdomen and Incision: gravid Episiotomy: NA Calf Tenderness: No Patient Condition: Good SUNNY MCGILL MD May 23, 2017 14:24
--- NOTE | 2017-05-23 14:27 | DS ---
Date/Time of Note Date/Time of Note DATE: 05/23/17 TIME: 14:24 Discharge Summary Admission/Discharge Info Admit Date/Time Apr 17, 2017 at 22:10 Discharge Date/Time 05/23/2017 Discharge Diagnosis S/P labor Patient Condition: Good Consults perinatology Procedures None Hx of Present Illness 32 y/o female admitted with short cervix and labor and per perinatologist recommendation was kept in hospital until 32 weeks Hospital Course uncomplicated Home Meds Active Scripts Sodium Chloride ([place]) 104 Ml [place], 104 ML NS q2 for 3 Days, SPRAY Prov:SHELIA SCHULTZ 12/25/16 Acetaminophen* (Tylenol*) 500 Mg Tab, 500 MG PO Q4H Y for MILD PAIN LEVEL 1-3 for 3 Days, TAB Prov:SHELIA SCHULTZ 12/25/16 Reported Medications Vit No.124/Iron/FA ( Vitamin Tablet) 1 Each Tablet, 1 EACH PO, TAB 04/17/17 Follow-up Plan 3 days Primary Care Provider Not On Staff Doctor Time spent on discharge: > 30 minutes SUNNY MCGILL MD May 23, 2017 14:27
--- NOTE | 2017-05-23 14:52 | PD.PPDC ---
TRACTOR DRIVER TEAMSTER Discharge Instruction Provider Information Physician Information 32 y/o female admitted for laborand short cervix, D/[place] at 32 weeks Diagnosis Final Diagnosis: labor Condition Patient Condition: Good Diet Diet: Resume Regular Diet Activity/Restrictions Activity: Bedrest May Shower Restrictions: No Exercising No Lifting Nothing in the Vagina Follow-up Follow-up with Physician: 3, Day/Days (in clinic) Return to clinic for Comment: refer back for uterine cramps and or vaginal bleeding SUNNY MCGILL MD May 23, 2017 14:52
[2017-05-23] MEDS ORDERED: PROG100C5 VAG (14:55)
[2017-05-23] MEDS ORDERED: NIFE10CA19 PO (14:55)
== END 2017-05-23 18:16 | disposition home or self-care (01) | DRG 778 ==
LOC: OBT 17:42 → L-D 17:44 → OBT 22:10 → OBG 22:10
PROVIDERS: ADMIT Obstetrics & Gynecology; ATTEND Obstetrics & Gynecology
DX: O60.02 Preterm labor without delivery, second trimester (principal); O26.872 Cervical shortening, second trimester; O26.852 Spotting complicating pregnancy, second trimester; O23.42 Unspecified infection of urinary tract in pregnancy, second trimester; Z3A.27 27 weeks gestation of pregnancy
CPT/HCPCS: 71010; 76815; 76817; 76818; 80053; 81001; 83735; 85025; 85610; 85730; 86850; 86900; 86901; 87086; 87340; G0463; J0690; J0702; J2405; J3475; J7120

== ENCOUNTER 2017-07-15 02:45 | Inpatient (IN) | payer OTHER ==
[2017-07-15] VITALS (14 sets, daily range): BP systolic 104–138; BP diastolic 54–80; PULSE 94–114; RESP 16–19; Ht 154.9 cm; Wt 121.5 kg
[~2017-07-15] VITALS: Ht 154.9 cm; Wt 121.5 kg
[~2017-07-15 02:45] MED LIST changes: +NIFE10CA19 PO; +PREN-93 PO; +PROG100C5 VAG; -TYL500 PO
[2017-07-15] MEDS ORDERED: LACTATED RINGER'S 1,000 ML IV SCH (03:03)
[2017-07-15] MEDS ORDERED: BUTORPHANOL 2 MG INJ IV PRN (03:30)
[2017-07-15] MEDS ORDERED: OXYTOCIN 30 UNITS/LR 500 ML IV SCH ×2 (03:30)
[2017-07-15] MEDS ORDERED: CARBOPROST 250 MCG INJ IM PRN ×2 (03:30→05:30)
[2017-07-15] MEDS ORDERED: LACTATED RINGER'S 1,000 ML IV PRN (03:30)
[2017-07-15] MEDS ORDERED: METHYLERGONOVINE 0.2 MG INJ IM PRN ×2 (03:30→05:30)
[2017-07-15] MEDS ORDERED: HYDROCODONE/APAP (5/325) TAB PO PRN (03:30)
[2017-07-15] MEDS ORDERED: OXYTOCIN 30 UNITS/LR 500 ML IV PRN ×2 (03:30→05:30)
[2017-07-15] MEDS ORDERED: MISOPROSTOL 200 MCG TAB PR PRN ×2 (03:30→05:30)
[2017-07-15] MEDS ORDERED: AMPICILLIN 2 GM/NS (PMX) 100 ML IV ONE (03:30)
[2017-07-15] MEDS ORDERED: LIDOCAINE 1% (MPF) 30 ML INJ INJ PRN (03:30)
[2017-07-15] MEDS ORDERED: IBUPROFEN 600 MG TAB PO PRN (03:30)
[2017-07-15 04:08] LABS: BASOPHILS % 0.3 % (0.0-2.0); EOSINOPHILS # 0.1 10^3/ul (0.0-0.5); HEMATOCRIT 39.4 % (37.0-47.0); HEMOGLOBIN 13.1 g/dl (12.0-16.0); LYMPHOCYTES # 2.7 10^3/ul (0.8-2.9); LYMPHOCYTES % 19.2 % (15.0-51.0); MEAN CORPUSCULAR HEMOGLOBIN 27.3 pg (29.0-33.0); MEAN CORPUSCULAR HGB CONC 33.2 g/dl (32.0-37.0); MEAN CORPUSCULAR VOLUME 82.1 fl (82.0-101.0); MEAN PLATELET VOLUME 9.9 fl (7.4-10.4); MONOCYTE # 0.9 10^3/ul (0.3-0.9); MONOCYTES % 6.5 % (0.0-11.0); NEUTROPHIL # 10.2 10^3/ul (1.6-7.5); NEUTROPHILS % 72.4 % (39.0-77.0); PLATELET COUNT 212 10^3/UL (140-415); RED CELL DISTRIBUTION WIDTH 13.6 % (11.5-14.5); WHITE BLOOD COUNT 14.1 10^3/ul (4.8-10.8)
[2017-07-15 04:22] LABS: INR 1.06; PROTIME 13.8 Sec (12.2-14.2); PT RATIO 1.1
[2017-07-15 04:23] LABS: PARTIAL THROMBOPLASTIN TIME 31.6 Sec (25.0-35.0)
[2017-07-15] MEDS ORDERED: LABETALOL HCL 20MG INJ ONE (04:42)
[2017-07-15] MEDS ORDERED: MAGNESIUM SULFATE 20 GM/500 ML 500 ML IV ONE (04:43)
[2017-07-15] MEDS ORDERED: MAGNESIUM SULFATE 4 GM/100 ML 100 ML ONE (04:43)
--- NOTE | 2017-07-15 04:56 | HP ---
Date/Time of Note Date/Time of Note DATE: 07/15/17 TIME: 04:50 OB - History Hx of Present Free Text/Dictation 32 Year-old with SIUP at 39 4/7 presents with a chief complaint of UCS. She has been receiving her care with Dr. Whitman. She states good movement. She denies nausea, vomiting, shortness of breath, chest pain, and abdominal pain between contractions, headache, visual changes, vaginal bleeding or LOF. Chief Complaint: ucs Estimated Due Date: Jul 18, 2017 : 3 Para: 2 Spontaneous : 0 Therapeutic : 0 Care: Good Care Ultrasounds: Normal mid trimester US Obstetrical Complications: None Past Family/Social History * Past Medical, Surgical, Family and Obstetric Histories reviewed from chart. Blood Type: A+ Rubella: immune RPR/VDRL: Negative GBS Status: Negative HBsAG: Negative OB Admission Exam Vital Signs Vital Signs BP: 170/95 on admission when was in severe pain due to ucs PA: 80/min RR: 18/ min T: 98.1 Physical Exam HEENT: WNL Heart: Rhythm Normal Lungs: Clear Abdomen: WNL Extremities: Normal Cervical Dilatation: 9cm Effacement: 100% Station: -2 Membranes: Intact Heart Rate: 140's Accelerations: Accelerations Present Decelerations: No Decelerations Varibility: Moderate Contractions on Admission: < 5 Minutes Apart Intensity: Firm Last 72 hours Lab Results CBC & BMP 07/15/17 03:24 OB Assessment/Plan Other plan: 32 Year-old with SIUP at 39 4/7 wks in active labor. - FHR: No sign of metabolic acidosis- Category I - Continious EFM, toco - CBC, blood type and screen - Analgesia options with R/B/A discussed in detail with patient - Epidural per patient request - Please see the orders - A+/Rubella: Immune/GBS negative Admission, procedures, expectations, risks and possible complications have been discussed in detail with the patient. Risk of vaginal delivery including but not limited to bleeding, infection, cervical laceration, placental retention, injury to fetus, blood transfusion, blood transfusion related infection, risk of anesthesia, adhesion, cervical laceration, episiotomy/laceration, possible delivery with risk of bleeding, infection, injury to other organs ( bowel, bladder, ureter, vessels, nerves), injury to fetus, blood transfusion, blood transfusion related infection, risk of anesthesia, scar and hernia formation, needs for future , removal of uterus or any other indicated surgery discussed with the patient. She expressed understanding and repeats the risks. All of her questions were answered; all appropriate consents will be signed. PHYSICIAN'S VERIFICATION OF INFORMED CONSENT: The patient was counseled regarding the procedure, its indications, risks, potential complications and alternatives and any questions were answered. Consent was obtained. PLANNED PROCEDURE/TREATMENT: Vaginal delivery with possible vacuum/forceps delivery episiotomy, repair of laceration possible delivery PHYSICIAN'S VERIFICATION OF INFORMED CONSENT FOR BLOOD TRANSFUSION: There is a reasonable possibility that blood transfusion will be necessary as a result of the patient's procedure. I have discussed the following with the patient/patient's legal retail sales representative: An explanation of the benefits and risks of the transfusion of blood or blood products and the possible alternatives. Al questions have been answered to the patient's/patients legal representatives satisfaction. INFORMED CONSENT: The patient has been informed of: - The nature of the proposed care, treatment, services, medic- Potential benefits, risks or side effects, including potential problems related to recuperation. - The likelihood of achieving care treatment and service goals. - Reasonable alternatives to the proposed care, treatment and service. - The relevant risks, benefits and side effects related to alternatives, including the possible results of not receiving care, treatment and services. - When indicated, any limitations on the confidentiality of information learned from or about the patient. - If appropriate, the risks, benefits and alternatives of the drugs to be used for sedation/analgesia including moderate sedation. - If appropriate, patient has been provided information on the risks, benefits and alternatives to the transfusion of blood and/or blood products. CHEMO YOUNGER Jul 15, 2017 04:56
--- NOTE | 2017-07-15 04:59 | LDN ---
Date/Time of Note Date/Time of Note DATE: 07/15/17 TIME: 04:57 Delivery Summary 32 Year-old with SIUP at 39 4/7 wks dlivered a female over 1st degree laceration. Weight: 6 lbs 5 oz Time of delivery: 04:08 Weeks of Gestation 39 4/7 Placenta Delivered: Spontaneously Meconium: none Episiotomy: No Perineal laceration: 1 Laceration repair: yes with 3/0 vicryl Anesthesia type: Local Estimated blood loss: 100 Sponge & Needle done & correct: Yes All needle counts correct: Yes Any foreign bodies felt in the: No Problems: Infant Delivery Information Sex Sex: female Apgars 1 Minute: 9 5 Minute: 9 Suctioning Nose & mouth suctioned at sai: Yes Umbilical Cord Umbilical cord with: 3 Vessels Cord presentations: no nuchal cord Cord Blood was obtained: Yes CHEMO YOUNGER Jul 15, 2017 04:59
[2017-07-15] MEDS ORDERED: MAGNESIUM SULFATE 4 GM/100 ML 100 ML IV ONE (05:00)
[2017-07-15] MEDS ORDERED: LABETALOL HCL 20MG INJ IV ONE ×2 (05:00→05:30)
[2017-07-15] MEDS ORDERED: DEXTROSE 5%-LR 1,000 ML IV SCH (05:07)
[2017-07-15] MEDS: MAGNESIUM SULFATE 20 GM/500 ML 500 ML IV SCH ×2 (05:25→15:04)
[2017-07-15] MEDS ORDERED: SENNA/DOCUSATE NA (8.6MG/50MG) TAB PO PRN (05:30)
[2017-07-15] MEDS ORDERED: ACETAMINOPHEN 325 MG TAB PO PRN (05:30)
[2017-07-15] MEDS ORDERED: DIBUCAINE 1% 30 GM OINT PR PRN (05:30)
[2017-07-15] MEDS ORDERED: DIPHENHYDRAMINE 50 MG INJ IV PRN (05:30)
[2017-07-15] MEDS ORDERED: LANOLIN 7 GM TUBE TOP PRN (05:30)
[2017-07-15] MEDS ORDERED: WITCH HAZEL/GLYCERIN PAD PR PRN (05:30)
[2017-07-15] MEDS ORDERED: ONDANSETRON 4 MG INJ IV PRN (05:30)
[2017-07-15] MEDS ORDERED: ZOLPIDEM 5 MG TAB PO PRN (05:30)
[2017-07-15 06:42] LABS: ALBUMIN 3.6 g/dl (3.3-4.9); ALBUMIN/GLOBULIN RATIO 1.12; CALCIUM 9.2 mg/dl (8.4-10.2); CREATININE 0.52 mg/dl (0.44-1.00); POTASSIUM 3.9 mmol/L (3.5-5.1); TOTAL PROTEIN 6.8 g/dl (6.1-8.1)
[2017-07-15] MEDS ORDERED: AMPICILLIN 1 GM/NS (PMX) 50 ML IV SCH (07:30)
[2017-07-15] MEDS: IBUPROFEN 600 MG TAB PO SCH ×3 (09:43→18:03)
[2017-07-15] MEDS: OXYCODONE/ASPIRIN (4.88/325) TAB PO PRN (10:34)
[2017-07-15] MEDS: BENZOCAINE 20% 56 ML SPRAY TOP PRN (10:35)
[2017-07-15] MEDS: LACTATED RINGER'S 1,000 ML IV* SCH ×3 (12:19→21:07)
[2017-07-16] VITALS (9 sets, daily range): BP systolic 101–118; BP diastolic 52–68; PULSE 102–105; RESP 17–20
[2017-07-16] MEDS: IBUPROFEN 600 MG TAB PO SCH ×5 (01:23→23:47)
[2017-07-16] MEDS: MAGNESIUM SULFATE 20 GM/500 ML 500 ML IV SCH (01:25)
[2017-07-16] MEDS: LACTATED RINGER'S 1,000 ML IV* SCH (02:57)
[2017-07-16] MEDS: OXYCODONE/ASPIRIN (4.88/325) TAB PO PRN (04:30)
[2017-07-16 09:06] LABS: BASOPHILS % 0.2 % (0.0-2.0); EOSINOPHILS # 0.1 10^3/ul (0.0-0.5); HEMATOCRIT 33.4 % (37.0-47.0); LYMPHOCYTES # 2.8 10^3/ul (0.8-2.9); LYMPHOCYTES % 21.1 % (15.0-51.0); MEAN CORPUSCULAR HEMOGLOBIN 27.7 pg (29.0-33.0); MEAN CORPUSCULAR HGB CONC 32.9 g/dl (32.0-37.0); MEAN CORPUSCULAR VOLUME 84.1 fl (82.0-101.0); MEAN PLATELET VOLUME 10.3 fl (7.4-10.4); MONOCYTE # 0.8 10^3/ul (0.3-0.9); MONOCYTES % 5.6 % (0.0-11.0); NEUTROPHIL # 9.7 10^3/ul (1.6-7.5); NEUTROPHILS % 71.7 % (39.0-77.0); PLATELET COUNT 200 10^3/UL (140-415); RED BLOOD COUNT 3.97 10^6/ul (4.20-5.40); RED CELL DISTRIBUTION WIDTH 14.3 % (11.5-14.5); WHITE BLOOD COUNT 13.5 10^3/ul (4.8-10.8)
--- NOTE | 2017-07-16 18:13 | DS ---
Date/Time of Note Date/Time of Note Home next day DATE: 07/16/17 TIME: 18:12 Obstetrical Discharge Record Final Diagnosis Final Diagnosis: Term delivered Other Final Diagnosis Status post vaginal delivery Vaginal Delivery Obstetrical Delivery: Spontaneous, Laceration, Repaired Condition on Discharge Physical Assessment Voiding: Yes Bowel Movement: Yes Breast: Soft, non-tender, Filling Fundus: Firm Abdomen and Incision: Abdomen is soft fundus is firm Episiotomy: Perineum is healing Calf Tenderness: No Patient Condition: Good SUNNY MCGILL MD Jul 16, 2017 18:13
--- NOTE | 2017-07-16 18:14 | PD.PPDC ---
POLITICAL AIDE Discharge Instruction Provider Information Physician Information 32-year-old female had vaginal delivery Diagnosis Final Diagnosis: Status post vaginal delivery Condition Patient Condition: Good Diet Diet: Resume Regular Diet Activity/Restrictions Activity: Normal Activity May Shower Return to Work or School: Sep 01, 2017 Follow-up Follow-up with Physician: 4, Week/Weeks Return to clinic for OB Instructions: Breast Tenderness Depression Comment: Pelvic rest for 6 weeks SUNNY MCGILL MD Jul 16, 2017 18:14
[2017-07-16] MEDS ORDERED: IBUP-1542 PO (18:15)
[2017-07-17 04:00] VITALS: BP 104/58; PULSE 96; RESP 20
[2017-07-17] MEDS: IBUPROFEN 600 MG TAB PO SCH ×2 (06:00→11:35)
[2017-07-17] MEDS: OXYCODONE/ASPIRIN (4.88/325) TAB PO PRN (06:54)
[2017-07-17 08:00] VITALS: BP 130/70; PULSE 83; RESP 18
[2017-07-17] MEDS ORDERED: DIPHTH/TET/ACEL PERTUSS (ADULT) 0.5 ML VIAL IM* ONE (09:00)
[2017-07-17] MEDS ORDERED: MEASLES,MUMPS,RUBELLA VACCINE INJ SC* ONE (09:00)
[2017-07-17] MEDS: BENZOCAINE 20% 56 ML SPRAY TOP PRN (15:45)
== END 2017-07-17 16:00 | disposition home or self-care (01) | DRG 775 ==
LOC: OBT 02:45 → L-D 02:50 → PP1 08:56
PROVIDERS: ADMIT Obstetrics & Gynecology; ATTEND Obstetrics & Gynecology
PROC: 10E0XZZ Delivery of Products of Conception, External Approach (ICD-10-PCS; principal; 2017-07-15)
PROC: 0HQ9XZZ Repair Perineum Skin, External Approach (ICD-10-PCS; 2017-07-15)
DX: O70.0 First degree perineal laceration during delivery (principal); Z37.0 Single live birth; Z3A.39 39 weeks gestation of pregnancy
CPT/HCPCS: 80053; 83735; 84560; 85025; 85610; 85730; 86592; 86900; 86901; 90715; J2590; J3475; J7120; J7121

== ENCOUNTER 2018-01-11 14:50 | Emergency (ER) | END 2018-01-11 17:51 | disposition home or self-care (01) ==